=== PATIENT | female | born 1990 | race Hispanic/Latino ===

== ENCOUNTER 2017-09-23 16:59 | Emergency (ER) | payer SELFPAY | END 2017-09-23 19:14 | disposition home or self-care (01) | LOC: EDH 16:59 | DX: R10.13 Epigastric pain (principal); Z90.49 Acquired absence of other specified parts of digestive tract; Z72.0 Tobacco use | CPT/HCPCS: 99281 ==

== ENCOUNTER 2017-11-26 22:03 | Emergency (ER) | payer SELFPAY ==
[2017-11-26] MEDS ORDERED: MORPHINE SULFATE 4 MG/1ML SYG ONE (22:25)
[2017-11-26] MEDS ORDERED: ONDANSETRON HCL 4 MG/2 ML VIAL ONE (22:26)
[2017-11-26] MEDS ORDERED: SODIUM CHLORIDE 0.9% 1000ML 1,000 ML IV ONE (22:26)
[2017-11-26 22:31] LABS: BASOPHILS % (AUTO) 0.4 % (0.0-5.0); EOSINOPHILS % (AUTO) 0.1 % (0.0-8.0); HEMATOCRIT 43.4 % (36-48); LYMPHOCYTES % (AUTO) 7.6 % (21.0-51.0); MEAN CORPUSCULAR HGB CONC 33.6 g/dL (32.0-36.0); MEAN CORPUSCULAR VOLUME 83.5 fL (79-99); MONOCYTES % (AUTO) 3.7 % (3.0-13.0); NEUTROPHILS % (AUTO) 88.2 % (40.0-77.0); PLATELET COUNT (AUTO) 406 K/uL (130-400); RED BLOOD CELL COUNT(AUTO) 5.19 MIL/uL (4.00-5.50); RED CELL DISTRIBUTION WIDTH 14.8 % (11.0-15.5); WHITE BLOOD COUNT (AUTO) 19.3 K/uL (4.8-10.8)
[2017-11-26 22:32] LABS: APPEARANCE,URINE Turbid (CLEAR); BILIRUBIN,URINE Small (NEGATIVE); COLOR,URINE Dark Yellow (YELLOW); GLUCOSE, URINE (UA) Negative (NEGATIVE); KETONES,URINE 40 mg/dL (NEGATIVE); LEUKOCYTE ESTERASE ,URINE Moderate (NEGATIVE); NITRATE,URINE Negative (NEGATIVE); OCCULT BLOOD,URINE Negative (NEGATIVE); PROTEIN,URINE POS 1+ (NEGATIVE)
[2017-11-26 22:40] LABS: HCG,QUAL RESULT NEGATIVE (NEGATIVE)
[2017-11-26 22:41] LABS: POTASSIUM 4.3 mmol/L (3.5-5.1)
[2017-11-26 22:42] LABS: ALBUMIN 4.1 g/dL (3.5-5.0); BILIRUBIN,TOTAL 0.3 mg/dL (0.2-1.0); TOTAL PROTEIN, SERUM 8.8 g/dL (6.0-8.3)
[2017-11-26 22:44] LABS: BACTERIA,URINE Few /HPF (None Seen); RBC,URINE 0-1 /HPF (0-1)
[2017-11-26 22:45] LABS: AMORPHOUS SEDIMENT,UR Many /LPF (None Seen); MUCUS,URINE Moderate LPF (None Seen); SQUAMOUS EPITHELIAL CELL,UR Moderate /HPF (0-2)
[2017-11-26] MEDS ORDERED: SODIUM CHLORIDE 0.9% 50 ML IV ONE (23:40)
[2017-11-26] MEDS ORDERED: CEFTRIAXONE SODIUM 1 GM ONE (23:40)
== END 2017-11-27 00:26 | disposition home or self-care (01) ==
LOC: EDH 22:03
DX: G43.909 Migraine, unspecified, not intractable, without status migrainosus (principal); N39.0 Urinary tract infection, site not specified; Z90.89 Acquired absence of other organs; Z90.49 Acquired absence of other specified parts of digestive tract
CPT/HCPCS: 36415; 70450; 80053; 81001; 81025; 85025; 87088; 87186; 93005; 96374; 96375; 99285; J0696; J2270; J2405; J7030

== ENCOUNTER 2021-11-17 13:43 | Emergency (ER) | payer OTHER ==
[~2021-11-17] VITALS: Ht 149.9 cm; Wt 108.9 kg
[2021-11-17 13:44] VITALS: BP 136/95
== END 2021-11-17 17:30 | disposition left against medical advice (07) ==
LOC: EDH 13:43
DX: M79.672 Pain in left foot (principal); Z53.21 Procedure and treatment not carried out due to patient leaving prior to being seen by health care provider